=== PATIENT | female | born 1990 | race American Indian/Alaskan Native ===

== ENCOUNTER 2018-01-12 18:26 | Emergency (ER) | payer OTHER ==
[2018-01-12] MEDS ORDERED: ATROVENT IH ONE (18:47)
[2018-01-12] MEDS ORDERED: PROVENTIL IH ONE (18:47)
[2018-01-12] MEDS ORDERED: NACL 0.9% 1000 ML 1,000 ML IV ONE (18:47)
[2018-01-12 19:08] LABS: Basophils # (Auto) 0.1 K/mm3 (0.0-0.1); Basophils % (Auto) 0.7 % (0.0-1.8); Eosinophils # (Auto) 0.9 K/mm3 (0.0-0.4); Eosinophils % (Auto) 7.4 % (0.0-4.3); Hematocrit 37.2 % (30.3-42.9); Hemoglobin 12.1 gm/dl (10.1-14.3); Lymphocytes # (Auto) 2.3 K/mm3 (1.2-5.4); Mean Corpuscular HGB Conc 33 % (30-34); Mean Corpuscular Hemoglobin 28 pg (28-32); Mean Corpuscular Volume 86 fl (79-97); Monocytes # (Auto) 0.5 K/mm3 (0.0-0.8); Monocytes % (Auto) 3.6 % (0.0-7.3); Platelet Count 367 K/mm3 (140-440); Red Blood Count 4.31 M/mm3 (3.65-5.03); Red Cell Distribution Width 15.2 % (13.2-15.2)
[2018-01-12 19:29] LABS: BUN/Creatinine Ratio 8; Blood Urea Nitrogen 4 mg/dL (7-17); Calcium 8.8 mg/dL (8.4-10.2); Hemolysis Index 13
[2018-01-12] MEDS ORDERED: ZOFRAN IV ONE (20:02)
--- NOTE | 2018-01-12 20:04 | Emergency Department Report ---
ED Asthma HPI - General Chief Complaint: Adult Asthma Stated Complaint: NEMO Time Seen by Provider: 01/12/18 18:47 Source: patient Mode of arrival: Stretcher Limitations: No Limitations - History of Present Illness Initial Comments: Patient is a 27-year-old female who is presenting with asthma attack. Patient states that during this time year when the pollen counts are high as she normally has some increase in her asthma symptoms. Patient was taken to breathing treatments at home today with no Relief. Patient Is Short of Breath and Wheezing. Patient Also Has a Dry Cough. Patient Denies Any Fever Nausea Vomiting Diarrhea at This Time. Patient Is 4 Months -: days(s) (2) Associated Symptoms: dry cough. denies: fever, chest pain, hemoptysis, leg edema, syncope Treatments Prior to Arrival: inhaled bronchodilator, oxygen - Related Data Home Medications Medication Instructions Recorded Confirmed Last Taken Hydrochlorothiazide [HCTZ] 12.5 mg PO QDAY 06/01/15 06/01/15 05/31/15 amLODIPine [Norvasc] 5 mg PO QDAY 06/01/15 06/01/15 05/31/15 Previous Rx's Medication Instructions Recorded Last Taken Type Budesoni/Formoterol 80-4.5(Nf) 2 puff IH BID #1 inha 06/01/15 Unknown Rx [Symbicort 80-4.5 (Nf)] Benzonatate [Tessalon Perles] 100 mg PO Q8HR #20 capsule 02/01/16 Unknown Rx Ibuprofen [Motrin] 600 mg PO Q8H PRN #30 tablet 02/01/16 Unknown Rx ALBUTEROL Inhaler [ProAir HFA 2 puff IH QID PRN #1 inha 01/12/18 Unknown Rx Inhaler] Albuterol *Only Ed* [Proventil 5 mg IH Q4H PRN 30 Days nebu 01/12/18 Unknown Rx 0.5% NEBS] Prednisone [predniSONE 10 mg 10 mg PO .TAPER #1 tab.ds.pk 01/12/18 Unknown Rx (6-Day Pack, 21 Tabs)] Allergies Allergy/AdvReac Type Severity Reaction Status Date / Time No Known Allergies Allergy Verified 12/19/14 12:30 ED Review of Systems ROS: Stated complaint: NEMO Other details as noted in HPI Comment: All other systems reviewed and negative ED Past Medical Hx - Past Medical History Hx Hypertension: Yes Hx Diabetes: No Hx Deep Vein Thrombosis: No Hx Renal Disease: No Hx Sickle Cell Disease: No Hx Seizures: No Hx Asthma: Yes Hx COPD: No Hx HIV: No - Social History Smoking Status: Never Smoker Substance Use Type: None - Medications Home Medications: Home Medications Medication Instructions Recorded Confirmed Last Taken Type Budesoni/Formoterol 80-4.5(Nf) 2 puff IH BID #1 inha 06/01/15 Unknown Rx [Symbicort 80-4.5 (Nf)] Hydrochlorothiazide [HCTZ] 12.5 mg PO QDAY 06/01/15 06/01/15 05/31/15 History amLODIPine [Norvasc] 5 mg PO QDAY 06/01/15 06/01/15 05/31/15 History Benzonatate [Tessalon Perles] 100 mg PO Q8HR #20 capsule 02/01/16 Unknown Rx Ibuprofen [Motrin] 600 mg PO Q8H PRN #30 tablet 02/01/16 Unknown Rx ALBUTEROL Inhaler [ProAir HFA 2 puff IH QID PRN #1 inha 01/12/18 Unknown Rx Inhaler] Albuterol *Only Ed* [Proventil 5 mg IH Q4H PRN 30 Days nebu 01/12/18 Unknown Rx 0.5% NEBS] Prednisone [predniSONE 10 mg 10 mg PO .TAPER #1 tab.ds.pk 01/12/18 Unknown Rx (6-Day Pack, 21 Tabs)] ED Physical Exam - General Limitations: No Limitations General appearance: alert, in no apparent distress - Head Head exam: Present: atraumatic, normocephalic - Eye Eye exam: Present: normal appearance - ENT ENT exam: Present: mucous membranes moist - Neck Neck exam: Present: normal inspection - Respiratory Respiratory exam: Present: normal lung sounds bilaterally, wheezes. Absent: respiratory distress, rales, rhonchi - Cardiovascular Cardiovascular Exam: Present: normal rhythm, tachycardia. Absent: systolic murmur, diastolic murmur, rubs, gallop - GI/Abdominal GI/Abdominal exam: Present: soft, normal bowel sounds - Extremities Exam Extremities exam: Present: normal inspection - Back Exam Back exam: Present: normal inspection - Neurological Exam Neurological exam: Present: alert, oriented X3 - Psychiatric Psychiatric exam: Present: normal affect, normal mood - Skin Skin exam: Present: warm, dry, intact, normal color. Absent: rash ED Course Vital Signs 01/12/18 01/12/18 01/12/18 18:44 19:16 19:34 Temperature 98.1 F Pulse Rate 137 H Pulse Rate [ Posterior] Respiratory 24 Rate Respiratory Rate [Posterior ] Blood Pressure 140/88 Blood Pressure [Left] O2 Sat by Pulse 96 97 100 Oximetry 01/12/18 01/12/18 01/12/18 19:50 19:51 20:00 Temperature 97.8 F Pulse Rate 114 H 113 H Pulse Rate [ Posterior] Respiratory 19 19 13 Rate Respiratory Rate [Posterior ] Blood Pressure 130/81 Blood Pressure 144/85 [Left] O2 Sat by Pulse 97 97 Oximetry 01/12/18 01/12/18 20:06 20:30 Temperature Pulse Rate 103 H Pulse Rate [ 106 H Posterior] Respiratory 15 Rate Respiratory 22 Rate [Posterior ] Blood Pressure 131/77 Blood Pressure [Left] O2 Sat by Pulse Oximetry ED Medical Decision Making - Lab Data Result diagrams: 01/12/18 18:54 01/12/18 18:54 - Medical Decision Making Patient received a prolonged nebulized treatment here in the hospital with Solu- Medrol and is feeling much better. Patient is able to talk without a raspy voice and her wheezing has subsided. Patient be discharged home at this time. Critical Care Time: Yes Critical care time in (mins) excluding proc time.: 30 Critical care attestation.: If time is entered above; I have spent that time in minutes in the direct care of this critically ill patient, excluding procedure time. ED Disposition Clinical Impression: Asthma exacerbation Qualifiers: Asthma severity: moderate Asthma persistence: unspecified Qualified Code(s): J45.901 - Unspecified asthma with (acute) exacerbation Disposition: DC-01 TO HOME OR SELFCARE Is pt being admited?: No Does the pt Need Aspirin: No Condition: Stable Instructions: Asthma (ED) Prescriptions: Albuterol *Only Ed* [Proventil 0.5% NEBS] 5 mg IH Q4H PRN 30 Days nebu PRN Reason: Wheezing ALBUTEROL Inhaler [ProAir HFA Inhaler] 2 puff IH QID PRN #1 inha PRN Reason: Shortness Of Breath Prednisone [predniSONE 10 mg (6-Day Pack, 21 Tabs)] 10 mg PO .TAPER #1 tab.ds.pk Referrals: PRIMARY CARE, [Primary Care Provider] - 3-5 Days
[2018-01-13 00:01] VITALS: BP 125/75
== END 2018-01-12 23:25 | disposition home or self-care (01) ==
LOC: ED 18:26
DX: J45.901 Unspecified asthma with (acute) exacerbation (principal); I10 Essential (primary) hypertension
CPT/HCPCS: 36415; 80048; 85025; 96361; 96374; 99291; J2405; J2930; J7030